=== PATIENT | female | born 1930 | race Caucasian/White ===

== ENCOUNTER 2019-08-14 11:57 | Day surgery (SDC) | payer OTHER, MEDICARE ==
[2019-08-14 12:54] VITALS: BMI 27.4
[2019-08-14] MEDS ORDERED: LIDOCAINE HCL 2% (20ML MULTI-DOSE VIAL) NR ONE (14:06)
[2019-08-14] MEDS ORDERED: GUM MASTIC/STORAX/MSAL/ALCOHOL 1 DRP DROPSBTL MC ONE (14:06)
[2019-08-14] MEDS ORDERED: PROPOFOL 20 ML ONE (14:34)
[2019-08-14] MEDS ORDERED: PROMETHAZINE HCL 25 MG/1 ML VIAL IVPUSH PRN (14:49)
[2019-08-14] MEDS ORDERED: ONDANSETRON 4 MG/2 ML VIAL IVPUSH PRN (14:49)
[2019-08-14] MEDS ORDERED: ACETAMINOPHEN 325 MG TABLET (FP) PO PRN (14:49)
[2019-08-14] MEDS ORDERED: LACTATED RINGERS SOLUTION 1,000 ML IV SCH (15:00)
[2019-08-14] MEDS ORDERED: LIDOCAINE HCL 2% (50ML VIAL) INF ONE (15:20)
[2019-08-14 16:23] VITALS: TEMP 98.4
[2019-08-14 16:38] VITALS: BP 133/88; PULSE 70
--- NOTE | 2019-08-19 20:11 | OP ---
DATE OF OPERATION: 08/14/2019 PREOPERATIVE DIAGNOSIS: Left carpal tunnel syndrome. POSTOPERATIVE DIAGNOSIS: Left carpal tunnel syndrome. OPERATIVE PROCEDURE: Left carpal tunnel release. ANESTHESIA: Local with sedation. COMPLICATIONS: None. ESTIMATED BLOOD LOSS: Minimal. INDICATION FOR PROCEDURE: The patient is an 89-year-old female with the above finding, indicated for operative treatment. Risks, benefits, and alternatives were discussed with the patient at length. Proper informed consent was obtained. PROCEDURE: After proper identification of patient and correct operative site, patient brought to the operating room, placed supine on the operating table. Prominences were well padded. Sedation and local anesthesia were given. Left upper extremity was prepped and draped in usual sterile fashion. Well-padded tourniquet was placed as well as a sterile prep. Esmarch bandage was used to exsanguinate the left upper extremity. Tourniquet was inflated to 250 mmHg. A longitudinal incision was made in the proximal aspect of the palm. Incision was taken sharply through the skin with blunt and sharp dissection through the subcutaneous tissues. Palmar fascia was divided longitudinally. Transcarpal ligament was divided longitudinally along with the distal 4 cm of the antebrachial fascia under direct visualization with loupe magnification. This provided complete release of the median nerve at the wrist. Wound was irrigated with saline, repaired with 5-0 fast-absorbing, plain-gut suture. Sterile dressings were applied. Patient was brought to recovery in stable condition. She tolerated the procedure well. DONNELL SUÁREZ M.D. [id number]
== END 2019-08-14 16:30 | disposition home or self-care (01) ==
LOC: FASU 11:57
PROVIDERS: ATTEND Orthopaedic Surgery Hand Surgery
PROC: 01N50ZZ Release Median Nerve, Open Approach (ICD-10-PCS; principal; 2019-08-14 15:16)
DX: G56.02 Carpal tunnel syndrome, left upper limb (principal)